=== PATIENT | female | born 1960 | race Caucasian/White ===

== ENCOUNTER 2022-01-23 17:17 | Observation (INO) ==
[2022-01-23] MEDS ORDERED: 0.9 % SODIUM CHLORIDE 1,000 ML IV ONE (17:39)
[2022-01-23] MEDS ORDERED: DILTIAZEM 25 MG/5 ML VIAL IV ONE (17:41)
[2022-01-23] MEDS ORDERED: MAGNESIUM SULFATE 2 GM/50 ML BAG IV ONE (17:41)
--- NOTE | 2022-01-23 17:48 | Emergency Department Note ---
SOB HPI General Chief Complaint: Shortness of Breath/Dyspnea Stated Complaint: SOB Time Seen by Provider: 01/23/22 17:18 Source: patient Mode of arrival: wheelchair Limitations: no limitations History of Present Illness HPI Narrative: Narrative: 61-year-old female with a history of paroxysmal atrial fibrillation and atrial flutter with RVR with an ablation performed in August, hypertension and morbid obesity presents the ER to be evaluated for shortness of breath. She came into the ER yesterday and was found to be COVID-positive. She had a negative Troponin. She did have an elevated D-dimer so she had an angiogram of the chest which showed inflammatory changes, but no evidence of fluid overload to corroborate an elevated BNP. She was given IV Lasix because of her BNP being over 800. She had an EKG that showed her in sinus tachycardia, no atrial fibrillation or atrial flutter. She states she does not feel chest pain or chest pressure but she feels the fluttering in her chest. She is unsure whether the COVID or her heart that is making her short of breath. She says she feels somewhat panicked. She is here for further evaluation. Nothing is made it better or worse for her. She is currently on diltiazem. Related Data Home Medications Medication Instructions Recorded Confirmed diltiazem HCl 240 mg 240 mg PO QDAY 06/19/21 01/23/22 capsule,extended release 24 hr Previous Rx's Medication Instructions Recorded losartan 25 mg tablet 25 mg PO QDAY #30 tabs 11/30/21 Allergies Allergy/AdvReac Type Severity Reaction Status Date / Time No Known Drug Allergies Allergy Verified 01/22/22 06:47 Review of Systems ROS ROS Narrative: Narrative: All systems ED: reviewed and negative except as stated. [facility] Narrative Patient History Narrative: Narrative: Medical/Surgical/Family History All Active Problems (Updated 01/23/22 @ 20:40 by Leon Duffy PA-C) COVID-19 (Acute) Atrial fibrillation with RVR (Acute) Cough (Acute) Hypertension (Chronic) Mass on back (Acute) Atrial flutter (Chronic) Acute cervical sprain (Acute) Concussion syndrome (Acute) Atrial flutter with rapid ventricular response (Acute) Medical History Acute cervical sprain Atrial flutter Concussion syndrome Hypertension Mass on back Under right shoulder blade, very tender to the touch, makes it wood to move right arm Surgical History History of appendectomy History of x4 History of tonsillectomy Family History Mother Lung cancer Father High blood pressure Heart attack TIA (transient ischemic attack) Brother Depression Social History Smoking Status: Current every day smoker Alcohol Intake Frequency: does not drink Substance Use: does not use Exam Narrative Narrative: Narrative: Gen: Patient is very anxious, she is flushed with red cheeks Eyes: PERRL, no conjunctival injection , and symmetrical lids. Sclerae non icteric HENMT: Normocephalic Atraumatic head, external nose and ears. Moist MM. CVS: +S1/S2, irregularly irregular and tachycardic radial pulses 2+ and equal bilat. no pitting edema RESP: Unlabored respiratory effort . Clear to auscultation bilaterally (CTAB). No noted wheezes rales or ronchi. MSK: Extremities w/o deformity or ttp. No cyanosis or clubbing. Skin: Warm, Dry . No rashes or lesions . Cap refill less than 2. Psych: Awake, Alert, & Oriented (AAO) x3. Patient is anxious General Limitations: no limitations Course Vital Signs Vital signs: Vital Signs Temperature 96.7 F L 01/23/22 17:21 Pulse Rate 156 H 01/23/22 17:21 Respiratory Rate 32 H 01/23/22 17:21 Blood Pressure 135/76 01/23/22 17:21 Pulse Oximetry (%) 98 01/23/22 17:21 Oxygen Delivery Method 01/23/22 17:21 Temperature 96.7 F L 01/23/22 17:21 Pulse Rate 133 H 01/23/22 17:41 Respiratory Rate 26 H 01/23/22 17:41 Blood Pressure 128/92 01/23/22 17:41 Pulse Oximetry (%) 98 01/23/22 17:41 Oxygen Delivery Method 01/23/22 17:21 MDM MDM Narrative Medical decision making narrative: Narrative: Patient had a significant work-up yesterday. She tested positive for COVID-19. Negative Troponin. Positive D-Dimer. She had a negative CTA of the chest as well as chest x-ray that showed inflammatory changes/pos fluid overload that was not corroborated on CTA. Her BNP was elevated and she was given Lasix but her CTA did not corroborate fluid overload. She was sent home. She presented today in A. fib with RVR and a rate between the 130s and 150s and she was quite panicky and tachypneic. She will be given 20 mg of diltiazem IV and 2 mg of magnesium and will be reevaluated. Patient is currently on diltiazem. Reevaluation: Patient still in A. fib with RVR at 1 18-1 30. She said her shortness of breath is improved from when her rate was higher but it still there. She will be given 5 mg of Lopressor IV at this time. Reevaluation: After 5 mg of Lopressor her heart rate came down to the low 100s. She still has a solid blood pressure. She will be given another 5 mg. She still feels short of breath with any activity. Reevaluation: After the second round of Lopressor patient's blood pressure is somewhat soft in the low 100s systolic and her rate is fluttering between 80s and the 1 teens Pt is still very short of breath with any movement. She will be walked and we will evaluate her pulse oximetry Patient did not desaturate with ambulation but she was extremely short of breath and is still struggling with A. fib with RVR, given her current condition I believe she would be best served being admitted to the hospital to hopefully attempt to convert her atrial fib with rapid ventricular response and observe her. Hospitalist team will be consulted. Dr Barth: Graciously agreed to admit the patient to the ICU he will be down to evaluate the patient. Discharge Plan Patient/Caregiver Discharge Instructions Pt seen by APPRENTICE TECHNICIAN/PA only: Yes Clinical Impression: COVID-19, Atrial fibrillation with RVR Patient Disposition: Xfer As Inpt ([facility]) Follow up with: Dhaval Mcmahan MD [Primary Care Provider] - Prescriptions: No Action losartan 25 mg tablet 25 mg PO QDAY Qty: 30 0RF diltiazem HCl 240 mg capsule,extended release 24hr 240 mg PO QDAY
[2022-01-23] MEDS ORDERED: ACETAMINOPHEN 325 MG TABLET PO ONE (17:59)
[2022-01-23] MEDS ORDERED: METOPROLOL TARTRATE 5 MG/5 ML VIAL IV ONE ×2 (18:24→19:00)
--- NOTE | 2022-01-23 21:17 | Internal Med History&Physical ---
HPI History of Present Illness Patient information: Note initiated : 01/23/22 at 9:05 pm Service Date, if different from initiated Date: [] Patient: Kenya Lopez a 61 y/o F admitted on for Shortness of breath. Chief Complaint: [shortness of breath] Chief complaint: shortness of breath History of present illness: Ms. Lopez is a 61 year old F history of atrial flutter/atrial fibrillation status post 2 ablations in August 2021, essential hypertensions, presenting with 1 week history of worsening shortness of breath. Patient is partially vaccinated against COVID-pneumonia she has 1 shot of the vaccinations. She stated that over the past week she has increasing degree of shortness of breath. She presented to our ED yesterday and was being diagnosed with COVID pneumonia. Her D-dimer was also mildly elevated and CT angiogram of the chest showing negative for pulmonary embolism. There was also no focal infiltrates. She was on room air and she was given Lasix and was then sent home and was told to follow-up with her PCP. Patient's return to our ED this evening for worsening degree of shortness of breath. She denies cough wheezing or sputum productions. She otherwise denies any chest pain or palpitations. She is complain of mild anxiety. She is also complaining of diaphoresis but otherwise denies any fever or chills. Vital signs significant for tachycardia heart rate up in the 150s beats per minute. She is still saturating 100% on room air. She was given IV diltiazem and 2 doses of IV Lopressor which helped with her tachycardia and brought down her heart rate back to the 1 teens to 120s beats per minute. Constitutional Constitutional: Absent chills, excessive sweating, fatigue, fever(s) or weakness Additional comments: sweating EENT Eyes: Absent blurry vision, change in vision, loss of vision or other visual disturbances Ears: Absent decreased hearing or tinnitus Nose, mouth and throat: Absent abnormal hearing, dry mouth, headache(s), nasal congestion or sore throat Cardiovascular Cardiovascular: Absent chest pain, chest pain at rest, edema, irregular heart rhythm or palpatations Respiratory Respiratory: Present dyspnea; Absent cough or wheezing Gastrointestinal Gastrointestinal: Absent abdominal pain, constipation, diarrhea, nausea or vomiting Musculoskeletal Musculoskeletal: Absent back pain, deformity, limited range of motion, muscle cramps, muscle weakness or numbness Integumentary Integumentary: Absent lesions, rash or wounds Neurological Neurological: Absent focal weakness, headache(s) or numbness Psychiatric Psychiatric: Present anxiety; Absent depression or hallucinations PFSH PFSH All Active Problems (Updated 01/23/22 @ 20:40 by Leon Duffy PA-C) COVID-19 (Acute) Atrial fibrillation with RVR (Acute) Cough (Acute) Hypertension (Chronic) Mass on back (Acute) Atrial flutter (Chronic) Acute cervical sprain (Acute) Concussion syndrome (Acute) Atrial flutter with rapid ventricular response (Acute) Medical History Acute cervical sprain Atrial flutter Concussion syndrome Hypertension Mass on back Under right shoulder blade, very tender to the touch, makes it wood to move right arm Surgical History History of appendectomy History of x4 History of tonsillectomy Family History Mother Lung cancer Father High blood pressure Heart attack TIA (transient ischemic attack) Brother Depression Social History household members: family housing: apartment lives independently: Yes marital status: occupational status: employed occupation: [employer] smoking status: Current every day smoker tobacco type: cigarettes per day: 5 smoking status start date: 08/24/74 alcohol intake frequency: does not drink substance use type: does not use MEDS/ALLERGIES Home Medications and Allergies Home Medications Medication Instructions Recorded Confirmed Type diltiazem HCl 240 mg 240 mg PO QDAY 06/19/21 01/23/22 History capsule,extended release 24 hr losartan 25 mg tablet 25 mg PO QDAY #30 tabs 11/30/21 01/23/22 Rx Allergies Allergy/AdvReac Type Severity Reaction Status Date / Time No Known Drug Allergies Allergy Verified 01/22/22 06:47 EXAM Constitutional Vitals: Temp Pulse Resp BP Pulse Ox O2 Del Method 35.9 C L 97 H 36 H 140/104 98 01/23/22 17:21 01/23/22 20:46 01/23/22 20:46 01/23/22 20:46 01/23/22 20:46 01/23/22 17:21 General appearance: cooperative, mild distress and morbidly obese Head Head exam: Present atraumatic and normocephalic Eye Eye exam: Present EOMI and PERRL ENT ENT exam: Present mucous membranes moist, normal exam and normal external ear exam Neck Neck exam: Present normal inspection; Absent lymphadenopathy, tenderness or thyromegaly Respiratory Respiratory exam: Absent accessory muscle use, respiratory distress or wheezes Cardiovascular Cardiovascular exam: Present irregular rhythm and tachycardia; Absent JVD GI/Abdominal GI/Abdominal exam: Present normal bowel sounds and soft; Absent organomegaly or tenderness Extremities Exam Extremities exam: Present full ROM, normal capillary refill and normal inspection; Absent tenderness Neurological Exam Neurological exam: Present alert, CN II-XII intact and oriented X3; Absent motor sensory deficit Psychiatric Psychiatric exam: Present anxious, normal affect and normal mood; Absent depressed Skin Skin exam: Present diaphoretic and intact; Absent dry A/P Assessment and plan (1) Atrial fibrillation with RVR: Status: Acute (2) COVID-19: Status: Acute (3) Hypertension: Status: Chronic Narrative A/P Narrative: Assessment and Plans: 1. Atrial fibrillation with RVR: Inpatient ICU with telemetry 2D echocardiogram Diltiazem drip Diltiazem PO Ativan PO PRN anxiety [id number] score of 2, Eliquis 2. h/o essential HTN: Diltiazem drip Diltiazem PO Hold Losartan in order to make room (blood pressure) for Diltiazem drip 3. CoVID positivity: Currently tolerating room air, will NOT initiate CoVID specific treatment now Isolation: airborne and contact Incentive Spirometry q1hr while awake GI ppx: not currently indicated DVT ppx: Eliquis Code status: Full Prognosis: guarded Disposition: inpatient ICU Critical Care Time: 1hr Time Spent With Patient Time: Total time spent is greater than 50% in coordination of care (as documented) at patient's floor/unit and/or counseling patient: Total time spent with greater than 50% in coordination of care (as documented) at patient's floor/unit and/or counseling patient:: 50 - 70 minutes Critical Care Time: Yes Total Critical Care Time: 60
[2022-01-23] MEDS ORDERED: LORazepam 1 MG TABLET PO PRN (22:30)
[2022-01-23] MEDS ORDERED: ACETAMINOPHEN 325 MG TABLET PO PRN (22:30)
[2022-01-23] MEDS ORDERED: ONDANSETRON 4 MG/2 ML VIAL IV PRN (22:30)
[2022-01-23] MEDS ORDERED: DILTIAZEM 125 MG in DEXTROSE 5% IN WATER 100 ML IV SCH (22:30)
[2022-01-23] MEDS: 0.9 % SODIUM CHLORIDE 10 ML SYRINGE IV SCH (22:33)
[2022-01-23] MEDS: DOCUSATE SODIUM 100 MG CAPSULE PO SCH (23:50)
[2022-01-24] MEDS ORDERED: LORazepam 1 MG TABLET ONE (00:21)
[2022-01-24] MEDS: 0.9 % SODIUM CHLORIDE 10 ML SYRINGE IV SCH ×2 (05:48→12:32)
[2022-01-24 08:00] LABS: ALT/SGPT 27 U/L (<40); AST/SGOT 40 U/L (<32); Albumin 3.7 gm/dL (3.2-5.2); Albumin/Globulin Ratio 1.3 (1.0-2.3); Alkaline Phosphatase 117 U/L (39-117); Bilirubin,Total 0.3 mg/dL (0.1-1.0); Blood Urea Nitrogen 13 mg/dL (6-20); Calcium 8.2 mg/dL (8.6-10.4); Carbon Dioxide 18 mmol/L (22-30); Chloride 106 mmol/L (96-108); Globulin 2.8 gm/dL (2.2-3.7); Glomerular Filtration Rate 94; Glucose 87 mg/dL (70-105); Phosphorous 3.4 mg/dL (2.5-4.5)
[2022-01-24] MEDS: DOCUSATE SODIUM 100 MG CAPSULE PO SCH (08:11)
[2022-01-24 08:43] LABS: Basophils # (Auto) 0.05 K/mcL (0.00-0.30); Basophils % (Auto) 1.5 % (0.0-2.0); Eosinophils # (Auto) 0.04 K/mcL (0.00-0.70); Eosinophils % (Auto) 1.2 % (0.0-7.0); Hematocrit 50.5 % (34.1-44.9); Hemoglobin 15.3 g/dL (11.2-15.7); Lymphocytes # (Auto) 2.07 K/mcL (1.50-4.80); Lymphocytes % (Auto) 62.7 % (15.5-49.0); Mean Cell Volume 92.7 fL (80.0-100.0); Mean Corpuscular HGB Conc 30.3 g/dL (31.0-36.0); Mean Platelet Volume 10.4 fL (7.4-10.4); Monocytes # (Auto) 0.37 K/mcL (0.10-0.90); Monocytes % (Auto) 11.2 % (1.0-12.0); Neutrophils % (Auto) 23.1 % (38.0-78.0); Platelet Count 184 K/mcL (140-440); RBC 5.45 M/mcL (3.59-5.38); Red Cell Distribution Width 14.1 % (11.5-14.5); WBC 3.3 K/mcL (4.5-11.0)
[2022-01-24] MEDS ORDERED: LOSARTAN 25 MG TABLET PO SCH (09:00)
[2022-01-24] MEDS ORDERED: SENNOSIDES 1 TABLET PO SCH (09:00)
[2022-01-24] MEDS ORDERED: APIXABAN 5 MG TABLET PO SCH (09:00)
[2022-01-24] MEDS ORDERED: DILTIAZEM 240 MG CAP.XL.24H PO SCH (09:00)
[2022-01-24] MEDS ORDERED: NICOTINE 21 MG PATCH TOPICAL SCH (10:00)
[2022-01-24] MEDS ORDERED: LORazepam 0.5 MG TABLET PO PRN (10:08)
--- NOTE | 2022-01-24 10:09 | Internal Med Progress Note ---
SUBJECTIVE Subjective Patient information: Note initiated : 01/24/22 at 10:05 am Service Date, if different from initiated Date: [] Patient: Kenya Lopez a 61 y/o F admitted on 01/23/22 for Shortness of breath. Chief Complaint: [] Interval history: Ms. Lopez is a 61 year old F history of atrial flutter/atrial fibrillation status post 2 ablations in August 2021, essential hypertensions, presenting with 1 week history of worsening shortness of breath. Patient is partially vaccinated against COVID-pneumonia she has 1 shot of the vaccinations. She stated that over the past week she has increasing degree of shortness of breath. She presented to our ED yesterday and was being diagnosed with COVID pneumonia. Her D-dimer was also mildly elevated and CT angiogram of the chest showing negative for pulmonary embolism. There was also no focal infiltrates. She was on room air and she was given Lasix and was then sent home and was told to follow-up with her PCP. Patient's return to our ED this evening for worsening degree of shortness of breath. She denies cough wheezing or sputum productions. She otherwise denies any chest pain or palpitations. She is complain of mild anxiety. She is also complaining of diaphoresis but otherwise denies any fever or chills. Vital signs significant for tachycardia heart rate up in the 150s beats per minute. She is still saturating 100% on room air. She was given IV diltiazem and 2 doses of IV Lopressor which helped with her tachycardia and brought down her heart rate back to the 1 teens to 120s beats per minute. 01/24: Patient's been afebrile overnight. She continues to tolerate room air overnight. Diltiazem was never started and patient's converted back to sinus rhythm. Echocardiogram performed results pending. Patient is complaining of improving degree of shortness of breath. She is coming of cough with clear sputum productions and denies any wheezing. She denies any chest pain or palpitations. She denies any fever chills or diaphoresis. She is committing of mild anxiety. Downgrade patient from ICU to [facility] with telemetry. Stop Cardizem drip. Continue p.o. Cardizem for rate control as well as Eliquis for anticoagulations. Supplemental oxygen standby. No COVID-specific treatment at this point because patient is not on any supplemental oxygen. Continue Ativan 0.5 mg p.o. every 4 hours as needed anxiety. Constitutional Vitals: Vital Signs Temp Pulse Resp BP Pulse Ox O2 Del Method O2 Flow Rate 36.4 C 75 8 L 128/98 98 0 01/24/22 08:00 01/24/22 08:00 01/24/22 08:00 01/24/22 08:00 01/24/22 08:00 01/23/22 22:17 01/24/22 05:00 Period Temp Pulse Resp BP Sys/[place] Pulse Ox O2 Del Method O2 Flow Rate Last 24 Hr 35.9 C-36.6 C 36-156 8-42 92-182/60-159 93-100 Room Air-Room Air 0-0 Intake and Output 01/23/22 01/24/22 01/24/22 21:59 05:59 13:59 Intake Total 1050 1170 Output Total 275 150 Balance 1050 895 -150 Weight 140.614 kg 131.315 kg Intake & Output: Intake & Output 01/23/22 01/24/22 01/24/22 21:59 05:59 13:59 Intake Total 1050 1170 Output Total 275 150 Balance 1050 895 -150 Weight 140.614 kg 131.315 kg Intake: IV 1050 Sodium Chloride 0.9% 1,000 ml @ 1000 Wide Open IV BOLUS ONE Rx#: [id number] Oral 1170 Output: Void Amount 275 150 Other: Meal Eggsalad with crackers Percent of Meal Consumed 100% Feeding Ability Independent Urine Appearance Clear Clear Urine Color Dark Yellow Bright Yellow Urine Odor Normal Normal # Voids 1 Head Head exam: Present atraumatic and normal inspection Eye Eye exam: Present normal appearance ENT ENT exam: Present mucous membranes moist, normal exam and normal external ear exam Neck Neck exam: Present normal inspection Respiratory Respiratory exam: Present normal respiratory exam Cardiovascular Cardiovascular exam: Present normal rate and rhythm GI/Abdominal GI/Abdominal exam: Present normal bowel sounds Back Exam Back exam: Present normal inspection Neurological Exam Neurological exam: Present alert and oriented X3 Skin Skin exam: Present intact and warm OBJ DATA Labs CBC & Chem 7: 01/24/22 06:28 01/24/22 06:27 Labs: Abnormal Lab Results 01/24/22 01/24/22 06:28 06:27 WBC 3.3 L RBC 5.45 H Hct 50.5 H MCHC 30.3 L Neut % (Auto) 23.1 L Lymph % (Auto) 62.7 H Absolute Neutrophils 0.77 L* Carbon Dioxide 18 L Calcium 8.2 L Magnesium 2.8 H AST 40 H Meds: Medications Acetaminophen (Acetaminophen 325 Mg Tablet) 650 mg PO Q4-6HP PRN; Protocol PRN Reason: Per Pain Protocol/Fever > 101 Last Admin: 01/24/22 09:16 Dose: 650 mg Apixaban (Apixaban 5 Mg Tablet) 5 mg PO BID [facility] Last Admin: 01/24/22 08:11 Dose: 5 mg Diltiazem HCl (Diltiazem 240 Mg Cap.Xl.24h) 240 mg PO QDAY [facility] Last Admin: 01/24/22 08:11 Dose: 240 mg Docusate Sodium (Docusate Sodium 100 Mg Capsule) 100 mg PO BID [facility] Last Admin: 01/24/22 08:11 Dose: 100 mg Diltiazem HCl 125 mg/ Dextrose 125 mls @ 5 mls/hr IV Q12H [facility]; Protocol Last Admin: 01/23/22 23:15 Dose: Not Given Lorazepam (Lorazepam 1 Mg Tablet) 1 mg PO Q4HP PRN PRN Reason: ANXIETY/SEDATION Last Admin: 01/24/22 00:14 Dose: 1 mg Ondansetron HCl (Ondansetron 4 Mg/2 Ml Vial) 4 mg IV Q4-6HP PRN; Protocol PRN Reason: Nausea And Vomiting Senna (Sennosides 1 Tablet) 1 tab PO DAILY [facility] Last Admin: 01/24/22 08:11 Dose: 1 tab Sodium Chloride (0.9 % Sodium Chloride 10 Ml Syringe) 10 ml IV Q8 [facility] Last Admin: 01/24/22 05:48 Dose: 10 ml A/P Assessment and plan (1) Atrial fibrillation with RVR: Status: Acute (2) COVID-19: Status: Acute (3) Hypertension: Status: Chronic Narrative A/P Narrative: Assessment and Plans: 1. Atrial fibrillation with RVR: inpatient ICU-->med surg telemetry 2D echocardiogram, results pending Diltiazem drip-->d/c Diltiazem ER 240mg PO daily Ativan 0.5mg PO q4hr PRN anxiety [id number] score of 2, starting Eliquis 2. h/o essential HTN: Diltiazem drip-->d/c Diltiazem ER 240mg PO daily Resume Losartan 3. CoVID positivity: Currently tolerating room air, will NOT initiate CoVID specific treatment now Isolation: airborne and contact Incentive Spirometry q1hr while awake GI ppx: not currently indicated DVT ppx: Eliquis Code status: Full Prognosis: guarded Disposition: inpatient ICU-->med surg telemetry Critical Care Time: 30min Time Spent With Patient Time: Total time spent is greater than 50% in coordination of care (as documented) at patient's floor/unit and/or counseling patient: Total time spent with greater than 50% in coordination of care (as documented) at patient's floor/unit and/or counseling patient:: 35 - 50 minutes QUALITY Stroke Symptom Onset Unknown: No VTE Deep Vein Thrombosis/Pulmonary Embolism Present on Admission: No
[2022-01-25] MEDS ORDERED: LOSARTAN 25 MG TABLET PO SCH (09:00)
--- NOTE | 2022-01-26 13:57 | EKG ---
[facility] Test Date: 2022-01-23 Pat Name: Kenya Lopez Department: ED Room: Gender: Female Rn Advice: SB : 1960 Requested By: Robson Hall Order Number: [id number] Reading MD: Beto Serna Measurements Intervals Turner Rate: 146 P: CA: QRS: 62 QRSD: 94 T: 49 QT: 307 QTc: 479 Interpretive Statements Atrial fibrillation with RVR Baseline wander in lead(s) I,II,III,aVR,aVL,aVF,V1,V3,V4,V5,V6 Electronically Signed On 01-26-2022 13:56:14 PDT by Beto Serna /store/M0/[id number]/ecg/[id number]
== END 2022-01-24 16:15 | disposition left against medical advice (07) ==
LOC: ED 17:17 → INTOOBSV 22:17 → ICU 22:17
PROVIDERS: ADMIT Internal Medicine; ATTEND Internal Medicine